=== PATIENT | male | born 1965 | race Caucasian/White ===

== ENCOUNTER → 2018-11-04 | Outpatient (CLI) | payer BC ==
--- NOTE | 2018-11-04 10:59 | REP ---
MAXILLOFACIAL CT WITHOUT CONTRAST: HISTORY: Acute recurrent sinusitis. The frontal sinuses are hypoplastic. The sinuses are clear. The ostiomeatal units are patent. The middle and inferior nasal turbinates are partially paradoxical. There is germaine bullosa of the left middle nasal turbinate. There is mild deviation of the nasal septum to the right. The cribriform plate, medial vann of the orbits and optic canals are intact. The carotid canals form a segment of the posterolateral vann of the sphenoid sinus. The nasopharynx is normal in appearance. IMPRESSION: There is no acute or chronic sinusitis. Electronically Signed by Ananda Jean-Baptiste MD 11/04/2018 11:00 A
== END ==
LOC: M RAD 10:11
PROVIDERS: ATTEND Specialist
DX: J01.01 Acute recurrent maxillary sinusitis (principal); R04.0 Epistaxis

== ENCOUNTER → 2020-07-07 | Outpatient (CLI) | payer BC ==
--- NOTE | 2020-07-07 09:02 | REP ---
INDICATION: PAIN IN RT AND LT LEGS COMPARISON: None. TECHNIQUE: Real time rosales scale and color Doppler evaluation of the bilateral lower extremity arterial vasculature using linear high frequency transducer. FINDINGS: Rosales scale and color images demonstrate mild atheromatous plaquing without stenosis or occlusion. Doppler interrogation demonstrates normal triphasic arterial wave forms and velocities bilaterally. Peak systolic velocities (cm/sec) Common femoral artery: Right 137.5; Left 104.3 Profunda femoris: Right 79.0; Left 94.7 SFA (proximal): Right 109.1; Left 115.0 SFA (mid): Right 100.0; Left 98.3 SFA (distal): Right 56.1; Left 97.6 Popliteal artery: Right 76.9; Left 65.8 KAROL (prox.): Right 82.1; Left 56.9 Tibioperoneal trunk: Right 92.5; Left 88.2 HUMAN RESOURCES BENEFITS COORDINATOR (prox.): Right 77.4; Left 65.1 HUMAN RESOURCES BENEFITS COORDINATOR (distal): Right 110.6; Left 89.7 KAROL (distal): Right 93.3; Left 72.6 IMPRESSION: Mild bilateral atheromatous changes without stenosis or occlusion. <Electronically signed by Fabio Irwin > 07/07/20 [id number]
== END ==
LOC: M RAD 07:53
PROVIDERS: ATTEND Physician Assistant
DX: M79.604 Pain in right leg (principal); M79.605 Pain in left leg

== ENCOUNTER → 2021-09-14 | Outpatient (REF) | LOC: M LAB 10:40 | PROVIDERS: ATTEND Nurse Practitioner Adult Health | DX: Z11.52 Encounter for screening for COVID-19 (principal); Z20.822 Contact with and (suspected) exposure to COVID-19 ==

== ENCOUNTER → 2021-09-23 | Outpatient (REF) | payer OTHER | LOC: M CARPUL 06:28 → EDSTATUS 07:00 | PROVIDERS: ATTEND Nurse Practitioner Adult Health | DX: Z02.1 Encounter for pre-employment examination (principal) ==

== ENCOUNTER → 2022-03-03 | Outpatient (REF) | payer OTHER ==
[2022-03-03 16:08] LABS: BASO # 0.1 10^3/uL (0.0-0.2); EOS # 0.2 10^3/uL (0.0-0.5); EOS % 2.4 % (0.0-3.0); HEMATOCRIT 42.4 % (42.0-52.0); HEMOGLOBIN 14.8 g/dl (13.5-17.5); LYMPH # 2.1 10^3/uL (1.5-5.0); LYMPH % 31.2 % (24.0-44.0); MEAN CORPUSCULAR HEMOGLOBIN 31.8 pg (27.0-33.0); MEAN CORPUSCULAR HGB CONC 34.9 g/dl (32.0-36.5); MONO # 0.6 10^3/uL (0.0-0.8); MONO % 9.3 % (2.0-8.0); NEUTROPHILS # 3.7 10^3/uL (1.5-8.5); NEUTROPHILS % 55.1 % (36.0-66.0); PLATELET COUNT, AUTOMATED 204 10^3/uL (150-450); RED BLOOD COUNT 4.66 10^6/uL (4.30-6.10); WHITE BLOOD COUNT 6.7 10^3/uL (4.0-10.0)
[2022-03-03 17:46] LABS: MALB URINE SIEMENS 10.3 MG/L; MAU/CREAT RATIO 5.8 MCG/MG (0.0-30.0)
[2022-03-03 18:57] LABS: ALBUMIN 3.8 GM/DL (3.2-5.2); ALT/SGPT 39 U/L (12-78); BILIRUBIN,TOTAL 0.4 MG/DL (0.2-1.0); BLOOD UREA NITROGEN 21 MG/DL (7-18); CALCIUM LEVEL 8.4 MG/DL (8.5-10.1); CARBON DIOXIDE LEVEL 24 MEQ/L (21-32); CHLORIDE LEVEL 108 MEQ/L (98-107); CHOLESTEROL LEVEL 141 MG/DL (<200); CHOLESTEROL RISK RATIO 5.222 (<5); CREATININE FOR GFR 1.19 MG/DL (0.70-1.30); GLOMERULAR FILTRATION RATE > 60.0 (>56); GLUCOSE, FASTING 192 MG/DL (70-100); HDL CHOLESTEROL 27 MG/DL (>40); NON-HDL-C 114 MG/DL; POTASSIUM SERUM 4.6 MEQ/L (3.5-5.1); SODIUM LEVEL 138 MEQ/L (136-145); TOTAL PROTEIN 6.9 GM/DL (6.4-8.2); TRIGLYCERIDES LEVEL 747 MG/DL (<150)
[2022-03-03 19:28] LABS: TOTAL 25(OH) VITAMIN D 24.5 NG/ML (30.0-100.0)
[2022-03-03 20:56] LABS: HEMOGLOBIN A1c 5.6 %
== END ==
LOC: M SFHCCAPE 09:39
PROVIDERS: ATTEND Physician Assistant
DX: E11.69 Type 2 diabetes mellitus with other specified complication (principal); E66.9 Obesity, unspecified; Z12.5 Encounter for screening for malignant neoplasm of prostate

== ENCOUNTER 2022-03-09 10:25 | Emergency (ER) | payer BC, MEDICAID, OTHER ==
[~2022-03-09] VITALS: Ht 177.8 cm; Wt 127.3 kg
[2022-03-09] MEDS ORDERED: ATOR1TAB21 (10:35)
[2022-03-09] MEDS ORDERED: TAMS1CAP17 (10:35)
[2022-03-09] MEDS ORDERED: OMEP-173 (10:35)
[2022-03-09] MEDS ORDERED: METO100T5 (10:35)
[2022-03-09] MEDS ORDERED: MELO15TA28 (10:35)
[2022-03-09] MEDS ORDERED: LOSA50TA28 (10:35)
[2022-03-09] MEDS ORDERED: METF-838 (10:35)
[2022-03-09 12:26] LABS: BASO # 0.1 10^3/uL (0.0-0.2); BASO % 0.8 % (0.0-1.0); EOS # 0.1 10^3/uL (0.0-0.5); EOS % 2.2 % (0.0-3.0); HEMATOCRIT 40.5 % (42.0-52.0); HEMOGLOBIN 13.8 g/dl (13.5-17.5); LYMPH # 1.6 10^3/uL (1.5-5.0); LYMPH % 27.4 % (24.0-44.0); MEAN CORPUSCULAR HEMOGLOBIN 30.3 pg (27.0-33.0); MEAN CORPUSCULAR HGB CONC 34.1 g/dl (32.0-36.5); MONO # 0.6 10^3/uL (0.0-0.8); MONO % 10.3 % (2.0-8.0); NEUTROPHILS # 3.5 10^3/uL (1.5-8.5); PLATELET COUNT, AUTOMATED 182 10^3/uL (150-450); RED BLOOD COUNT 4.55 10^6/uL (4.30-6.10)
[2022-03-09 12:49] LABS: ALBUMIN 3.9 GM/DL (3.2-5.2); ALT/SGPT 45 U/L (12-78); BILIRUBIN,DIRECT < 0.1 MG/DL (0.0-0.2); BILIRUBIN,TOTAL 0.4 MG/DL (0.2-1.0)
[2022-03-09 13:05] LABS: APPEARANCE, URINE CLEAR (CLEAR); BACTERIA, URINE AUTO NEGATIVE (NEGATIVE); BILIRUBIN, URINE AUTO NEGATIVE (NEGATIVE); BLOOD, URINE BLOOD NEGATIVE (NEGATIVE); COLOR, URINE STRAW (YELLOW); GLUCOSE, URINE (UA) AUTO NEGATIVE (NEGATIVE); KETONE, URINE AUTO NEGATIVE (NEGATIVE); LEUKOCYTE ESTERASE, URINE AUTO NEGATIVE (NEGATIVE); MUCUS, URINE SMALL (NEGATIVE); NITRITE, URINE AUTO NEGATIVE (NEGATIVE); PROTEIN, URINE AUTO NEGATIVE (NEGATIVE); RBC, URINE AUTO 1 /HPF (0-3); SPECIFIC GRAVITY URINE AUTO 1.005 (1.002-1.035); SQUAMOUS EPITHELIAL CELL UR AU 0 /HPF (0-6); UROBILINOGEN, URINE AUTO 0.2 mg/dL (0.0-2.0); WBC, URINE AUTO 0 /HPF (0-3)
[2022-03-09] MEDS ORDERED: KETOROLAC 30 MG/ML 1ML VIAL IV ONE (13:25)
[2022-03-09] MEDS ORDERED: ISOVUE-370 76% 100ML VIAL As Ordered ONE (13:36)
[2022-03-09 14:03] LABS: BLOOD UREA NITROGEN 12 MG/DL (7-18); CALCIUM LEVEL 9.3 MG/DL (8.5-10.1); CARBON DIOXIDE LEVEL 27 MEQ/L (21-32); CHLORIDE LEVEL 107 MEQ/L (98-107); CREATININE FOR GFR 0.92 MG/DL (0.70-1.30); GLOMERULAR FILTRATION RATE > 60.0 (>56); GLUCOSE, FASTING 127 MG/DL (70-100); POTASSIUM SERUM 4.6 MEQ/L (3.5-5.1); SODIUM LEVEL 138 MEQ/L (136-145)
[2022-03-09 15:20] LABS: CK-MB VALUE MASS 2.3 NG/ML (<3.6); MB/CK RELATIVE INDEX 1.49 (< OR =4)
[2022-03-09] MEDS ORDERED: CYCL-707 PO (16:10)
[2022-03-09 16:52] VITALS: BP 148/88
== END 2022-03-09 16:54 | disposition home or self-care (01) ==
LOC: M ED 10:25
DX: I10 Essential (primary) hypertension (principal); M54.6 Pain in thoracic spine; K21.9 Gastro-esophageal reflux disease without esophagitis; E66.8 Other obesity; Z88.0 Allergy status to penicillin; Z79.899 Other long term (current) drug therapy; Z79.84 Long term (current) use of oral hypoglycemic drugs
CPT/HCPCS: 36415; 71275; 80047; 80048; 80076; 81001; 82550; 82553; 84484; 85025; 93005; 96374; 99284; J1885; Q9967

== ENCOUNTER → 2022-10-13 | Outpatient (REF) | payer BC ==
[~2022-10-13] MED LIST: ATOR1TAB21; CYCL-707 PO; LOSA50TA28; MELO15TA28; METF-838; METO100T5; OMEP-173; TAMS1CAP17
[2022-10-13 17:36] LABS: ALBUMIN 4.2 G/DL (3.2-5.2); ALKALINE PHOSPHATASE 71 U/L (46-116); ALT/SGPT 54 U/L (7.0-40); BILIRUBIN,TOTAL 0.7 MG/DL (0.3-1.2); BLOOD UREA NITROGEN 14 MG/DL (9-23); CALCIUM LEVEL 10.2 MG/DL (8.5-10.1); CARBON DIOXIDE LEVEL 27 MMOL/L (20-31); CHLORIDE LEVEL 103 MMOL/L (98-107); CHOLESTEROL LEVEL 144 MG/DL (<200); CHOLESTEROL RISK RATIO 3.26 (<5); CREATININE FOR GFR 0.83 MG/DL (0.70-1.30); GLOMERULAR FILTRATION RATE > 60.0 (>56); GLUCOSE, FASTING 107 MG/DL (60-100); HDL CHOLESTEROL 44.1 MG/DL (>40); NON-HDL-C 100 MG/DL; POTASSIUM SERUM 4.5 MMOL/L (3.5-5.1); SODIUM LEVEL 139 MMOL/L (136-145); TOTAL 25(OH) VITAMIN D 47.9 NG/ML (20.0-100.0)
[2022-10-13 18:26] LABS: HEMOGLOBIN A1c 5.7 % (4.0-6.0)
[2022-10-13 19:10] LABS: AST/SGOT 46 U/L (<34); LDL CHOLESTEROL 74.3 MG/DL (<100); TOTAL PROTEIN 7.6 G/DL (5.7-8.2); TRIGLYCERIDES LEVEL 128 MG/DL (<150)
== END ==
LOC: M SFHCCAPE 09:42
PROVIDERS: ATTEND Physician Assistant
DX: E78.2 Mixed hyperlipidemia (principal)

== ENCOUNTER → 2022-10-18 | Outpatient (REF) | payer BC ==
[2022-10-18 17:33] LABS: LIPASE 42 U/L (12-53)
[2022-10-18 17:34] LABS: C REACTIVE PROTEIN QUANTITATIV < 0.40 MG/DL (<1.0)
[2022-10-18 17:37] LABS: ALBUMIN 3.7 G/DL (3.2-5.2); ALKALINE PHOSPHATASE 81 U/L (46-116); ALT/SGPT 37 U/L (7.0-40); AST/SGOT 27 U/L (<34); BILIRUBIN,TOTAL 0.4 MG/DL (0.3-1.2); BLOOD UREA NITROGEN 16 MG/DL (9-23); CARBON DIOXIDE LEVEL 24 MMOL/L (20-31); CHLORIDE LEVEL 107 MMOL/L (98-107); CREATININE FOR GFR 0.82 MG/DL (0.70-1.30); FOLATE 21.2 NG/ML (>5.4); GLOMERULAR FILTRATION RATE > 60.0 (>56); GLUCOSE, FASTING 111 MG/DL (60-100); SODIUM LEVEL 137 MMOL/L (136-145); TOTAL PROTEIN 6.6 G/DL (5.7-8.2); VITAMIN B12 LEVEL 547 PG/ML (211-911)
[2022-10-18 17:40] LABS: APPEARANCE, URINE CLEAR (CLEAR); BACTERIA, URINE AUTO NEGATIVE (NEGATIVE); BILIRUBIN, URINE AUTO NEGATIVE (NEGATIVE); BLOOD, URINE BLOOD 1+ (NEGATIVE); COLOR, URINE YELLOW (YELLOW); GLUCOSE, URINE (UA) AUTO NEGATIVE (NEGATIVE); KETONE, URINE AUTO NEGATIVE (NEGATIVE); LEUKOCYTE ESTERASE, URINE AUTO NEGATIVE (NEGATIVE); MUCUS, URINE SMALL (NEGATIVE); NITRITE, URINE AUTO NEGATIVE (NEGATIVE); PROTEIN, URINE AUTO NEGATIVE (NEGATIVE); RBC, URINE AUTO 1 /HPF (0-3); SPECIFIC GRAVITY URINE AUTO 1.013 (1.002-1.035); SQUAMOUS EPITHELIAL CELL UR AU 0 /HPF (0-6); UROBILINOGEN, URINE AUTO 0.2 mg/dL (0.0-2.0); WBC, URINE AUTO 1 /HPF (0-3)
== END ==
LOC: M SFHCCAPE 10:30
PROVIDERS: ATTEND Physician Assistant
DX: R07.9 Chest pain, unspecified (principal); R74.8 Abnormal levels of other serum enzymes; M54.6 Pain in thoracic spine; G89.29 Other chronic pain; G62.9 Polyneuropathy, unspecified
CPT/HCPCS: 80053; 81001; 82607; 82746; 83090; 83690; 83921; 85652; 86140; 86618; G0103

== ENCOUNTER 2022-10-24 16:42 | Inpatient (IN) | payer BC ==
[~2022-10-24] VITALS: Ht 177.8 cm; Wt 131.4 kg
[~2022-10-24 16:42] MED LIST changes: -METF-838; +METF-838 PO; -METO100T5; +METO100T5 PO; -OMEP-173; +OMEP-173 PO; -TAMS1CAP17; +TAMS1CAP17 PO
[2022-10-24] MEDS ORDERED: ATOR40TA75 PO (17:03)
[2022-10-24] MEDS ORDERED: LOSA100T45 PO (17:03)
[2022-10-24] MEDS ORDERED: hydrALAZINE 20MG/ML 1ML VIAL IV ONE ×2 (17:15→21:00)
[2022-10-24 17:47] LABS: BASO # 0.1 10^3/uL (0.0-0.2); BASO % 0.8 % (0.0-1.0); EOS # 0.1 10^3/uL (0.0-0.5); EOS % 1.2 % (0.0-3.0); HEMATOCRIT 40.8 % (42.0-52.0); HEMOGLOBIN 13.7 g/dl (13.5-17.5); LYMPH % 30.5 % (24.0-44.0); MEAN CORPUSCULAR HEMOGLOBIN 30.4 pg (27.0-33.0); MEAN CORPUSCULAR HGB CONC 33.6 g/dl (32.0-36.5); MEAN CORPUSCULAR VOLUME 90.5 fl (80.0-96.0); MONO # 0.5 10^3/uL (0.0-0.8); MONO % 7.8 % (2.0-8.0); NEUTROPHILS # 3.9 10^3/uL (1.5-8.5); NEUTROPHILS % 59.4 % (36.0-66.0); PLATELET COUNT, AUTOMATED 183 10^3/uL (150-450); RED BLOOD COUNT 4.51 10^6/uL (4.30-6.10); WHITE BLOOD COUNT 6.5 10^3/uL (4.0-10.0)
[2022-10-24 18:20] LABS: ALBUMIN 3.8 G/DL (3.2-5.2); ALKALINE PHOSPHATASE 59 U/L (46-116); ALT/SGPT 39 U/L (7.0-40); AST/SGOT 28 U/L (<34); BILIRUBIN,DIRECT 0.1 MG/DL (<0.4); BILIRUBIN,TOTAL 0.4 MG/DL (0.3-1.2); BLOOD UREA NITROGEN 14 MG/DL (9-23); CALCIUM LEVEL 8.7 MG/DL (8.5-10.1); CARBON DIOXIDE LEVEL 28 MMOL/L (20-31); CHLORIDE LEVEL 104 MMOL/L (98-107); CREATININE FOR GFR 0.87 MG/DL (0.70-1.30); GLOMERULAR FILTRATION RATE > 60.0 (>56); GLUCOSE, FASTING 100 MG/DL (60-100); POTASSIUM SERUM 4.6 MMOL/L (3.5-5.1); SODIUM LEVEL 138 MMOL/L (136-145); TOTAL PROTEIN 6.5 G/DL (5.7-8.2)
[2022-10-24] MEDS ORDERED: ERGO500029 PO (20:50)
[2022-10-24] MEDS ORDERED: HOME MED LIST COMPLETE! XX SCH (20:55)
[2022-10-24] MEDS ORDERED: LORazepam 2 MG TAB PO PRN (21:00)
[2022-10-24] MEDS ORDERED: ACETAMINOPHEN TAB 650MG DOSE (2X325MG) PO PRN (21:00)
[2022-10-24] MEDS ORDERED: GLUCOSE 4GM CHEW TABLET PO PRN (21:00)
[2022-10-24] MEDS ORDERED: DEXTROSE 50% 50ML SYRINGE IV PRN (21:00)
[2022-10-24] MEDS ORDERED: ATORVASTATIN 20 MG TAB PO SCH (21:00)
[2022-10-24] MEDS ORDERED: INSULIN LISPRO (NovoLOG) PER UNIT SC SCH (21:00)
[2022-10-24] MEDS ORDERED: GLUCAGON INJ 1MG VIAL SC PRN (21:00)
[2022-10-24 22:56] LABS: RSV AMPLIFICATION NEGATIVE (NEGATIVE)
[2022-10-25] VITALS (11 sets, daily range): BP systolic 155–198; BP diastolic 67–98; O2SAT 95–97
[2022-10-25] MEDS: THIAMINE 100 MG TAB PO SCH ×2 (00:26→09:00)
[2022-10-25] MEDS ORDERED: hydrALAZINE 20MG/ML 1ML VIAL IV PRN (04:55)
[2022-10-25 05:25] LABS: HEMATOCRIT 41.8 % (42.0-52.0); HEMOGLOBIN 14.1 g/dl (13.5-17.5); MEAN CORPUSCULAR HEMOGLOBIN 30.3 pg (27.0-33.0); MEAN CORPUSCULAR HGB CONC 33.7 g/dl (32.0-36.5); MEAN CORPUSCULAR VOLUME 89.9 fl (80.0-96.0); PLATELET COUNT, AUTOMATED 182 10^3/uL (150-450); RED BLOOD COUNT 4.65 10^6/uL (4.30-6.10); WHITE BLOOD COUNT 6.5 10^3/uL (4.0-10.0)
[2022-10-25 05:57] LABS: BLOOD UREA NITROGEN 13 MG/DL (9-23); CALCIUM LEVEL 8.8 MG/DL (8.5-10.1); CARBON DIOXIDE LEVEL 26 MMOL/L (20-31); CHLORIDE LEVEL 105 MMOL/L (98-107); CREATININE FOR GFR 0.79 MG/DL (0.70-1.30); GLOMERULAR FILTRATION RATE > 60.0 (>56); GLUCOSE, FASTING 93 MG/DL (60-100); MAGNESIUM LEVEL 1.7 MG/DL (1.8-2.4); POTASSIUM SERUM 4.1 MMOL/L (3.5-5.1); SODIUM LEVEL 139 MMOL/L (136-145)
[2022-10-25 06:41] LABS: HEMOGLOBIN A1c 5.6 % (4.0-6.0)
[2022-10-25] MEDS: INSULIN LISPRO (NovoLOG) PER UNIT SC SCH ×2 (07:30→12:00)
[2022-10-25] MEDS ORDERED: MAGNESIUM OXIDE 400MG TAB (MAG-OX) PO ONE (08:00)
[2022-10-25] MEDS ORDERED: ENOXAPARIN 40MG/0.4ML SYRINGE (J1650 PER 10MG) SC SCH (09:00)
[2022-10-25] MEDS ORDERED: MULTIVITAMINS/MINERALS THERAP 1 TAB PO SCH (09:00)
[2022-10-25] MEDS ORDERED: FOLIC ACID 1MG TAB PO SCH (09:00)
[2022-10-25] MEDS ORDERED: METOPROLOL TART 50 MG TAB PO SCH (09:00)
[2022-10-25] MEDS ORDERED: LOSARTAN 50MG TABLET PO SCH (09:00)
[2022-10-25] MEDS ORDERED: TAMSULOSIN 0.4 MG CAP PO SCH (09:00)
[2022-10-25] MEDS ORDERED: OMEPRAZOLE 20MG CAP PO SCH (09:00)
[2022-10-25] MEDS ORDERED: METOPROLOL TARTRATE 100MG TAB PO SCH (09:00)
[2022-10-25] MEDS ORDERED: METO50TA7 PO (11:34)
[2022-10-25] MEDS ORDERED: HYDR-3910 PO (11:35)
[2022-10-25] MEDS ORDERED: FOLI1TAB11 PO (11:35)
[2022-10-25] MEDS ORDERED: THIA100TA PO (11:35)
[2022-10-25] MEDS ORDERED: AMLO1TAB25 PO (11:35)
== END 2022-10-25 13:48 | disposition home or self-care (01) | DRG 199 ==
LOC: M ED 16:42 → M ED INP 21:00 → M PCU 10-25 00:15
PROVIDERS: ADMIT Internal Medicine; ATTEND Internal Medicine
DX: I16.0 Hypertensive urgency (principal); I10 Essential (primary) hypertension; E78.5 Hyperlipidemia, unspecified; E11.9 Type 2 diabetes mellitus without complications; K21.9 Gastro-esophageal reflux disease without esophagitis; G47.33 Obstructive sleep apnea (adult) (pediatric); M54.9 Dorsalgia, unspecified; G89.29 Other chronic pain; N40.0 Benign prostatic hyperplasia without lower urinary tract symptoms; E66.9 Obesity, unspecified; Z87.891 Personal history of nicotine dependence; Z79.84 Long term (current) use of oral hypoglycemic drugs; Z79.899 Other long term (current) drug therapy; Z88.0 Allergy status to penicillin